=== PATIENT | female | born 1950 | race Caucasian/White ===

== ENCOUNTER 2024-03-31 06:35 | Inpatient (IN) | payer MEDICARE, OTHER ==
[~2024-03-31] VITALS: Ht 160 cm; Wt 79.4 kg
[2024-03-31] MEDS ORDERED: KETAMINE HCL (500MG/10ML) 50 MG/ML VIAL ONE (07:04)
[2024-03-31] MEDS ORDERED: FENTANYL PF 100MCG/2ML AMPUL ONE (07:04)
[2024-03-31] MEDS ORDERED: MIDAZOLAM HCL 2 MG/2ML VIAL ONE (07:04)
[2024-03-31] MEDS ORDERED: dexaMETHasone SOD PHOSPHATE 0 ML ONE (07:07)
[2024-03-31] MEDS ORDERED: ANESTHESIA TRAY IN PYXIS 1 EA TRAY MC ONE (07:07)
[2024-03-31] MEDS ORDERED: LIDOCAINE 2%-EPI 1:100,000 30 ML VIAL ONE (07:07)
[2024-03-31] MEDS ORDERED: VANCOMYCIN 1 GM VIAL ONE (07:08)
[2024-03-31] MEDS ORDERED: HYDROMORPHONE 1 MG/1 ML DISP.SYRIN IV PRN ×2 (10:00→11:00)
[2024-03-31 10:24] VITALS: BP 143/78; TEMP 97.8; O2SAT 97
[2024-03-31] MEDS ORDERED: ONDANSETRON HCL/PF 4 MG/2 ML VIAL IVP PRN (11:00)
[2024-03-31] MEDS ORDERED: PANT40TA2 PO (11:51)
[2024-03-31] MEDS ORDERED: VIT1CAPS44 PO (11:51)
[2024-03-31] MEDS ORDERED: TIMO10DR31 EACHEYE (11:51)
[2024-03-31] MEDS ORDERED: GABA100C PO (11:51)
[2024-03-31] MEDS ORDERED: METH2.5T PO (11:51)
[2024-03-31] MEDS ORDERED: LOSA50TA39 PO (11:51)
[2024-03-31] MEDS ORDERED: FOLI0.4T6 PO (11:51)
[2024-03-31] MEDS ORDERED: MOUNJARO SQ (11:51)
[2024-03-31] MEDS ORDERED: EVOL140P3 SQ (11:51)
[2024-03-31] MEDS ORDERED: ABAT125A SQ (11:51)
[2024-03-31] MEDS ORDERED: CHOL200059 PO (11:51)
[2024-03-31] MEDS ORDERED: EZET10TA15 PO (11:51)
[2024-03-31] MEDS: IV NS 0.9% 1,000 ML IV PRN (14:43)
[2024-03-31] MEDS ORDERED: DEXTROSE 50%-WATER 50 ML DISP.SYRIN IV PRN (19:00)
[2024-03-31] MEDS: VANCOMYCIN 1 GM in IV D5W 250ml IV SCH (19:39)
[2024-03-31 20:00] VITALS: BP 140/71; TEMP 98.4; O2SAT 95
[2024-03-31] MEDS: ACETAMINOPHEN 325 MG TABLET PO PRN (21:02)
[2024-03-31] MEDS: INSULIN REGULAR, HUMAN 100 UNIT/ML 3 ML VIAL SQ PRN (21:23)
[2024-03-31] MEDS: BLOOD SUGAR DIAGNOSTIC 1 EACH STRIP IN SCH (21:23)
[2024-04-01 08:24] VITALS: BP 115/66; TEMP 98.9; O2SAT 97
== END 2024-04-01 16:29 | disposition home or self-care (01) | DRG 142 ==
LOC: DS 06:35 → MED 10:16
PROC: 0NSR04Z Reposition Maxilla with Internal Fixation Device, Open Approach (ICD-10-PCS; principal; 2024-03-31)
PROC: 0N5R0ZZ Destruction of Maxilla, Open Approach (ICD-10-PCS; 2024-03-31)
PROC: 0N5V0ZZ Destruction of Left Mandible, Open Approach (ICD-10-PCS; 2024-03-31)
PROC: 0NUV07Z Supplement Left Mandible with Autologous Tissue Substitute, Open Approach (ICD-10-PCS; 2024-03-31)
PROC: 0NUR07Z Supplement Maxilla with Autologous Tissue Substitute, Open Approach (ICD-10-PCS; 2024-03-31)
DX: S02.609A Fracture of mandible, unspecified, initial encounter for closed fracture (principal); M27.2 Inflammatory conditions of jaws; D16.4 Benign neoplasm of bones of skull and face; X58.XXXA Exposure to other specified factors, initial encounter; Z68.31 Body mass index [BMI] 31.0-31.9, adult; I10 Essential (primary) hypertension; K21.9 Gastro-esophageal reflux disease without esophagitis; G62.9 Polyneuropathy, unspecified; E66.9 Obesity, unspecified; J32.0 Chronic maxillary sinusitis; S02.40DA Maxillary fracture, left side, initial encounter for closed fracture; Y92.9 Unspecified place or not applicable
CPT/HCPCS: 82962-TC; 88305-TC; 88311-TC; A4223; C1713; G0378; J0330; J1100; J1815; J1885; J2250; J2405; J2704; J3010; J3370; J3490; J7030; J7060